=== PATIENT | male | born 1965 | race Two or more races ===

== ENCOUNTER 2016-07-28 15:18 | Emergency (ER) | payer MEDICARE, MEDICAID ==
[~2016-07-28] VITALS: Ht 180.3 cm; Wt 79.4 kg
[~2016-07-28 15:18] MED LIST: ALPR0.25 PO; B-CO1CAP6 PO; CALC0.25 PO; CARV25TA OR; CARV25TA55; CARV25TA55 PO; CYCL1CAP PO; CYCL1CAP10 OR; ERGO1CAP6 PO; FER325T PO; GLUC1KIT; HYDR-2652; INSU70IN9 SC; INSUINJ3 SC; MULTCAP45 PO; MYCO250C PO; MYCO500T PO; NIFE30TA70; NIFE30TA76 PO; OME20T PO; OMEG1CAP10; OMEG1CAP10 OR; OMEP20CA74 OR; OMEP20TA34 PO; PRE5T; PRED5PAK8 PO; PREDPOW63; PROCARDIA PO; RANI-229; RANI300C7; RANI300C7 PO; SIMV-13 PO; SIMV-8; SODI650T PO; TACR1TAB4 PO; VALS40TA2 OR
[2016-07-28 15:50] LABS: Basophils # (auto) 0 uL; Basophils % (auto) 0.2 % (0.0-2.0); Eosinophils # (auto) 0 uL; Eosinophils % (auto) 0.3 % (0.0-7.0); Hematocrit 31.3 % (41.0-53.0); Hemoglobin 10.2 g/dL (13.5-17.5); Lymphocytes % (auto) 11.9 % (10.0-50.0); Mean Corpuscular Hemoglobin 28.5 pg (28.0-32.0); Mean Corpuscular Hgb Conc. 32.7 g/dL (32.0-36.0); Mean Corpuscular Volume 87.3 fL (80.0-100.0); Mean Platelet Volume 8.6 fL (7.4-10.4); Monocytes # (auto) 0.5 uL; Monocytes % (auto) 5.8 % (0.0-12.0); Neutrophils # (auto) 7.1 uL; Neutrophils % (auto) 81.8 % (37.0-80.0); Platelet Count (auto) 189 10^3/uL (140-450); Red Cell Distribution Width 16.1 % (11.6-16.0); White Blood Cell 8.7 10^3/uL (4.4-10.8)
[2016-07-28 16:12] LABS: Albumin 2.8 g/dL (3.4-5.0); BUN/Creatinine Ratio 10.6; Bilirubin, Total 0.8 mg/dL (0.2-1.0); Calcium 8.4 mg/dL (8.5-10.1); Potassium 4.2 mmol/L (3.5-5.1); Total Protein 5.5 g/dL (6.4-8.2)
[2016-07-28] MEDS ORDERED: HYDROmorphone HCL 2 MG/ML VL IV ONE (17:30)
[2016-07-28] MEDS ORDERED: ONDANSETRON HCL 4 MG/2 ML VIAL IV ONE (17:30)
[2016-07-28 19:42] VITALS: BP 137/52
== END 2016-07-28 21:00 | disposition left against medical advice (07) ==
LOC: ER 15:39
DX: R10.31 Right lower quadrant pain (principal); R11.2 Nausea with vomiting, unspecified; R19.7 Diarrhea, unspecified; I25.10 Atherosclerotic heart disease of native coronary artery without angina pectoris; I13.0 Hypertensive heart and chronic kidney disease with heart failure and stage 1 through stage 4 chronic kidney disease, or unspecified chronic kidney disease; I50.9 Heart failure, unspecified; N18.9 Chronic kidney disease, unspecified; E11.22 Type 2 diabetes mellitus with diabetic chronic kidney disease; K21.9 Gastro-esophageal reflux disease without esophagitis; Z79.899 Other long term (current) drug therapy; E78.5 Hyperlipidemia, unspecified
CPT/HCPCS: 36415; 74176; 80053; 82150; 83690; 85025; 93005; 94761; 96374; 96375; 99285; J1170; J2405; J7030